=== PATIENT | male | born 1955 | race Caucasian/White ===

== ENCOUNTER 2017-03-02 14:41 | Emergency (ER) | payer OTHER ==
[2017-03-02 15:19] LABS: % IMMATURE GRANULYOCYTES 0.1 % (0.0-1.1); ABSOLUTE IMMATURE GRANULOCYTES 0.01 10^3/uL (0.00-0.10); ADD DIFF? NO; ADD MORPH? NO; ADD SCAN? NO; ATYPICAL LYMPHOCYTE FLAG 0 (0-99); FRAGMENT RBC FLAG 0 (0-99); HEMATOCRIT 47.4 % (40.0-51.0); HEMOGLOBIN 16.7 g/dL (13.7-17.5); LEFT SHIFT FLG 0 (0-99); LIPEMIA HEMOLYSIS FLAG 90 (0-99); MEAN CELL HEMOGLOBIN 30.4 pg (27.9-34.1); MEAN CELL HEMOGLOBIN CONCENTR. 35.2 g/dL (32.4-36.7); MEAN CELL VOLUME 86.3 fL (81.5-99.8); MEAN PLATELET VOLUME 10.7 fL (8.7-11.7); PLATELET CLUMPS FLAG 50 (0-99); PLATELET COUNT 210 10^3/uL (150-400); RED BLOOD CELL COUNT 5.49 10^6/uL (4.40-6.38); RED CELL DISTRIBUTION WIDTH 13.5 % (11.5-15.2)
[2017-03-02 15:23] LABS: COLOR YELLOW; LEUKOCYTE ESTERASE,URINE NEGATIVE (NEGATIVE); NITRITE,URINE NEGATIVE (NEGATIVE); PH,URINE 5.5 (5.0-7.5)
[2017-03-02 15:29] LABS: ALANINE AMINOTRANSFERASE 35 IU/L (21-72); ALBUMIN 4.2 g/dL (3.5-5.0); ALKALINE PHOSPHATASE 87 IU/L (38-126); ANION GAP 17 mEq/L (8-16); ASPARTATE AMINOTRANSFERASE 25 IU/L (17-59); BILIRUBIN,TOTAL 0.8 mg/dL (0.1-1.4); CALCIUM 9.1 mg/dL (8.5-10.4); CARBON DIOXIDE 23 mEq/l (22-31); CHLORIDE 103 mEq/L (97-110); CREATININE 1.1 mg/dL (0.7-1.3); GLOMERULAR FILTRATION RATE > 60; GLUCOSE 97 mg/dL (70-100); POTASSIUM 4.2 mEq/L (3.5-5.2); SODIUM 143 mEq/L (134-144); TOTAL PROTEIN 7.3 g/dL (6.3-8.2)
--- NOTE | 2017-03-02 15:38 | EDPHY ---
H & P Time Seen by Provider: 03/02/17 15:37 HPI/ROS: Chief complaint. Disoriented, shaking HPI. 61-year-old male presents emergency department with complaint of feeling somewhat disoriented and both leg pain and shivering after a 3-4 mi hike this morning. [place] fine this morning and he and his had breakfast. They went then for 3-4 mi hike. He felt fine during the hike but did not drink water as he felt he had been hydrated at breakfast. At the end of the hike he began to feel generally quite exhausted. Both legs were hurting and he describes them as tired and achy but no swelling. He has slight headache and no energy slight nausea. He and his drove home with the air conditioner on full blast and he got into bed. His took his vital signs while he was in bed and found his blood pressure to be 150/94 with temp 100 degrees. Again the patient was not sick before. He tells me he had no chest discomfort or shortness of breath. He had no abdominal pain or vomiting or diarrhea other than slight nausea. He also had difficulty urinating after the hike. He has had prostate seeding for prostate cancer. He has BPH. He takes Flomax. Normally if he takes 1 Flomax pill he can urinate fairly well for 2-3 days. He took his last Flomax yesterday and has some unusual decreased urination today ROS Constitutional. Fever and chills; decreased energy Eyes. no problems with vision ENT. no sore throat, no nasal drainage Cardiovascular. no chest pain Respiratory. no shortness of breath, no cough Abdominal. No abdominal pain, vomiting, diarrhea. Slight nausea . Difficulty urinating MS. Both leg pain and achiness without swelling Skin. no rash Lymph. no swollen glands Neuro. Headache Past Medical/Surgical History: Past medical history is significant for BPH, kidney stone, prostate cancer Social History: , nonsmoker, no alcohol Physical Exam: General Appearance: Alert well-developed male mild distress vital signs significant for heart rate 100, temp 37.4degrees, blood pressure 127/86 Eyes: Pupils equal and round no pallor or injection. ENT, Mouth: Mucous membranes are moist. Respiratory: There are no retractions, lungs are clear to auscultation. Cardiovascular: Regular rate and rhythm. Gastrointestinal: Abdomen is soft and nontender, no masses, bowel sounds normal. Neurological: Awake and alert, sensory and motor exams grossly normal. Skin: Warm and dry, no rashes. Musculoskeletal: Neck is supple nontender. Extremities symmetrical, full range of motion. Psychiatric: Patient is oriented X 3, there is no agitation. Constitutional: Initial Vital Signs Temperature (C) 37.4 C 03/02/17 14:56 Heart Rate 100 03/02/17 14:56 Respiratory Rate 20 03/02/17 14:56 Blood Pressure 127/86 H 03/02/17 14:56 O2 Sat (%) 94 03/02/17 14:56 O2 Delivery Mode Room Air Allergies/Adverse Reactions: droperidol [From Inapsine] Adverse Reaction (Intermediate, Verified 03/02/17 14: 56) Home Medications: Medication Instructions Recorded FLOMAX 07/14/09 Medical Decision Making - Diagnostics EKG Interpretation: EKG interpreted by me shows normal sinus rhythm with normal interval. There is left axis deviation. Normal QRS. No significant ST elevation or depression. No arrhythmia. The rate is 95 Procedures: IV normal saline, monitor ED Course/Re-evaluation: Re-evaluation 4:20 p.m.. Patient is stable. Feeling better. Temp is 100 degrees. He is given Tylenol orally Re-evaluation 5:00 p.m.--patient feeling better. He is taking fluids. No chest discomfort or trouble breathing. No abdominal pain. No longer having headache or nausea. Legs feel somewhat sore and tired but much improved. Patient, his , and I discussed laboratory and EKG evaluation. We discussed treatment plan including criteria for return importance of follow-up further evaluation. They expressed understanding and agreement Recheck in 5:45 p.m.. Patient feels well. He has no neurologic changes. He is alert and oriented and conversational. He does still have a slight fever. However no chest discomfort or trouble breathing. No abdominal pain. Differential Diagnosis: I considered heat stroke because of the initial complaint disorientation. However the patient has been alert and conversational and neurologically normal the whole time he has been here. Certainly I think that this is heat exhaustion as the cause. I considered rhabdomyolysis. I considered acute coronary syndrome as well. I think there is a also has been significant dehydration and that is likely the reason causing the patient to have sense of difficult time urinating. There is no evidence for urinary tract infection or hematuria - Data Points Laboratory Results: Laboratory Results 03/02/17 15:00 03/02/17 15:00 03/02/17 03/02/17 03/02/17 15:00 15:00 15:00 WBC RBC Hgb Hct MCV MCH MCHC RDW Plt Count MPV Neut % (Auto) Lymph % (Auto) [place] % (Auto) Eos % (Auto) Baso % (Auto) Nucleat RBC Rel Count Absolute Neuts (auto) Absolute Lymphs (auto) Absolute Monos (auto) Absolute Eos (auto) Absolute Basos (auto) Absolute Nucleated RBC Immature Gran % Immature Gran # Sodium 143 mEq/L mEq/L (134-144) Potassium 4.2 mEq/L mEq/L (3.5-5.2) Chloride 103 mEq/L mEq/L (97-110) Carbon Dioxide 23 mEq/l mEq/l (22-31) Anion Gap 17 mEq/L H mEq/L (8-16) BUN 20 mg/dL mg/dL (7-23) Creatinine 1.1 mg/dL mg/dL (0.7-1.3) Estimated GFR > 60 Glucose 97 mg/dL mg/dL (70-100) Calcium 9.1 mg/dL mg/dL (8.5-10.4) Total Bilirubin 0.8 mg/dL mg/dL (0.1-1.4) AST 25 IU/L IU/L (17-59) ALT 35 IU/L IU/L (21-72) Alkaline Phosphatase 87 IU/L IU/L (38-126) Creatine Kinase 133 IU/L IU/L (0-224) Troponin I < 0.012 ng/mL ng/mL (0-0.034) Total Protein 7.3 g/dL g/dL (6.3-8.2) Albumin 4.2 g/dL g/dL (3.5-5.0) Urine Color YELLOW Urine Appearance CLEAR Urine pH 5.5 (5.0-7.5) Ur Specific [place] 1.015 (1.002-1.030) Urine Protein NEGATIVE (NEGATIVE) Urine Ketones NEGATIVE (NEGATIVE) Urine Blood NEGATIVE (NEGATIVE) Urine Nitrate NEGATIVE (NEGATIVE) Urine Bilirubin NEGATIVE (NEGATIVE) Urine Urobilinogen 0.2 EU EU (0.2-1.0) Ur Leukocyte Esterase NEGATIVE (NEGATIVE) Urine Glucose NEGATIVE (NEGATIVE) 03/02/17 15:00 WBC 9.46 10^3/uL 10^3/uL (3.80-9.50) RBC 5.49 10^6/uL 10^6/uL (4.40-6.38) Hgb 16.7 g/dL g/dL (13.7-17.5) Hct 47.4 % % (40.0-51.0) MCV 86.3 fL fL (81.5-99.8) MCH 30.4 pg pg (27.9-34.1) MCHC 35.2 g/dL g/dL (32.4-36.7) RDW 13.5 % % (11.5-15.2) Plt Count 210 10^3/uL 10^3/uL (150-400) MPV 10.7 fL fL (8.7-11.7) Neut % (Auto) 88.0 % H % (39.3-74.2) Lymph % (Auto) 8.8 % L % (15.0-45.0) [place] % (Auto) 2.2 % L % (4.5-13.0) Eos % (Auto) 0.5 % L % (0.6-7.6) Baso % (Auto) 0.4 % % (0.3-1.7) Nucleat RBC Rel Count 0.0 % % (0.0-0.2) Absolute Neuts (auto) 8.32 10^3/uL H 10^3/uL (1.70-6.50) Absolute Lymphs (auto) 0.83 10^3/uL L 10^3/uL (1.00-3.00) Absolute Monos (auto) 0.21 10^3/uL L 10^3/uL (0.30-0.80) Absolute Eos (auto) 0.05 10^3/uL 10^3/uL (0.03-0.40) Absolute Basos (auto) 0.04 10^3/uL 10^3/uL (0.02-0.10) Absolute Nucleated RBC 0.00 10^3/uL 10^3/uL (0-0.01) Immature Gran % 0.1 % % (0.0-1.1) Immature Gran # 0.01 10^3/uL 10^3/uL (0.00-0.10) Sodium Potassium Chloride Carbon Dioxide Anion Gap BUN Creatinine Estimated GFR Glucose Calcium Total Bilirubin AST ALT Alkaline Phosphatase Creatine Kinase Troponin I Total Protein Albumin Urine Color Urine Appearance Urine pH Ur Specific [place] Urine Protein Urine Ketones Urine Blood Urine Nitrate Urine Bilirubin Urine Urobilinogen Ur Leukocyte Esterase Urine Glucose Departure - Departure Disposition: Home, Routine, Self-Care Clinical Impression: Heat exhaustion due to water depletion Qualifiers: Encounter type: initial encounter Qualified Code(s): T67.3XXA - Heat exhaustion , anhydrotic, initial encounter Condition: Good Instructions: Heat Exhaustion (ED) Additional Instructions: Drink plenty of fluids and stay hydrated including water and Gatorade. Tylenol as needed for headache or fever. Return for worsening symptoms. Recheck in 1 day if not improved Referrals: NONE *PRIMARY CARE P,. [Primary Care Provider] - As per Instructions
--- NOTE | 2017-03-02 16:06 | CPEKG ---
Heart Rate: 95 RR Interval: 632 P-R Interval: 144 QRSD Interval: 92 QT Interval: 328 QTC Interval: 413 P Ada: 24 QRS Ada: -16 T Wave Ada: 26 EKG Severity - OTHERWISE NORMAL ECG - EKG Impression: SINUS RHYTHM EKG Impression: BORDERLINE LEFT AXIS DEVIATION Electronically Signed By: Juan Manuel Motta 02-Mar-2017 18:40:01
[2017-03-02 16:09] LABS: TROPONIN I < 0.012 ng/mL (0-0.034)
[2017-03-02] MEDS ORDERED: NS 1,000 ML IV ONE (16:21)
[2017-03-02] MEDS ORDERED: ACETAMINOPHEN 325 MG TAB PO ONE (16:24)
[2017-03-02] MEDS ORDERED: ACETAMINOPHEN 500 MG TAB ONE (16:27)
[2017-03-02 17:44] VITALS: BP 134/80; TEMP 100.9; O2SAT 95
[2017-03-02 18:01] VITALS: PULSE 85; RESP 20
== END 2017-03-02 17:58 | disposition home or self-care (01) ==
LOC: CED 14:41
DX: T67.3XXA Heat exhaustion, anhydrotic, initial encounter (principal); Z85.46 Personal history of malignant neoplasm of prostate
CPT/HCPCS: 80053-PO; 81003-PO; 82550-PO; 84484-PO; 85025-PO